=== PATIENT | female | born 1980 | race Caucasian/White ===

== ENCOUNTER → 2020-04-03 07:20 | Outpatient (CLI) | payer OTHER, SELFPAY ==
--- NOTE | 2020-04-03 09:08 | DI.CT.S_ITS ---
PROCEDURE: CT ABDOMEN PELVIS W CON INDICATIONS: Other specified diseases of appendix TECHNIQUE: After the administration of oral and intravenous contrast, 5 mm thick sections acquired from the diaphragms to the symphysis. 5 mm thick coronal and sagittal reformats were performed. For radiation dose reduction, the following was used: automated exposure control, adjustment of mA and/or kV according to patient size. COMPARISON: None. FINDINGS: Image quality: Excellent. ABDOMEN: Lung bases: Lung bases are clear. Heart size is normal. Solid organs: Liver is normal in size and enhancement. Gallbladder has been previously resected. Biliary system is non-dilated. Pancreas enhances normally. Spleen is normal in size and enhancement. No adrenal nodules. Kidneys are normal in size and enhancement, without hydronephrosis. Peritoneum and bowel: Stomach, small bowel, and colon loops are normal in caliber and wall thickness. No free fluid or air. Nodes and vessels: No retroperitoneal or mesenteric adenopathy. Aorta and inferior vena cava are normal in caliber. Miscellaneous: No ventral hernias. PELVIS: Genitourinary: Bladder wall thickness is normal. Probable prior hysterectomy, note is made of a rounded masslike structure at the left adnexa, likely left ovarian in origin, measuring up to 4.1 cm. Miscellaneous: No inguinal hernias or adenopathy. What appears to be a normal appendix is seen at the right lower quadrant. Bones: No suspicious bony lesions. No vertebral body compression fractures. IMPRESSION: 1. A definite source of right lower quadrant pain is not found. What appears to be a normal appendix is found at the right lower quadrant, contiguous with the posterior border of the cecum centered on series 2 image 61. 2. There is a rounded cystic or solid lesion involving the left adnexa, likely ovarian in origin. This is incompletely characterized by CT scanning, measures water in density, but should be followed up by elective pelvic ultrasound. Given that this may represent a simple cyst in a premenopausal patient followup by ultrasound to confirm resolution in 6-8 weeks could be utilized as a single study but depending on the clinical status a pelvic ultrasound at this time may be desired. Dictated by: Jefferson Dejesus M.D. on 04/03/2020 at 11:33 Approved by: Jefferson Dejesus M.D. on 04/03/2020 at 11:42
== END ==
PROVIDERS: PCP Family Medicine; Referring Provider Internal Medicine Gastroenterology; Visit Provider Internal Medicine Gastroenterology
DX: K38.8 Other specified diseases of appendix (principal); R10.31 Right lower quadrant pain
CPT/HCPCS: 74177; Q9967

== ENCOUNTER → 2020-04-15 12:39 | Outpatient (CLI) | payer OTHER, SELFPAY ==
--- NOTE | 2020-04-15 | DI.MRI.S_ITS ---
PROCEDURE: MR KNEE RT W CON INDICATIONS: PAIN IN BILATERAL KNEES TECHNIQUE: After the administration of 50 mL of dilute intra-articular Gadolinium contrast, sagittal T1 spin echo with fat saturation and PD fast spin echo with fat saturation, coronal T1 spin echo with and without fat saturation, coronal T2 fast spin echo with fat saturation, axial PD fast spin echo with fat saturation through the knee. COMPARISON: None. FINDINGS: Image quality: Excellent. Menisci: Subtle oblique undersurface tear involving the posterior horn of the medial meniscus, with partial extrusion of bone body. Lateral meniscus intact. Cruciate ligaments: Anterior cruciate ligament appears intact. Posterior cruciate ligament appears intact. Medial structures: The medial collateral ligament appears intact. Semimembranosus tendon appears intact. Visualized portions of the pes anserinus tendons appear normal. No abnormal bursal fluid. Lateral structures: The lateral collateral ligament intact. Biceps femoris tendon appears intact. Popliteus tendon grossly unremarkable. Iliotibial band appears intact. Anterior structures: Quadriceps tendon intact. Medial and lateral patellofemoral ligaments intact. Patellar tendon appears intact. Hoffa's fat pad unremarkable. Bones and cartilage: No focal marrow contusion or discrete low signal fracture line. Within the medial compartment, diffuse partial-thickness femoral and tibial articular cartilage loss without focal defect Within the lateral compartment, cartilage appears intact Within the patellofemoral compartment, diffuse surface fraying and intrasubstance signal change of the cartilage overlying the lateral patellar facet, as well as the lateral femoral trochlea. Joint space: Torres's cyst measures approximately 5 cm in the cephalocaudad dimension. Probable ganglion cyst involving the origin of the medial gastrocnemius. No specific evidence of intra-articular loose body. IMPRESSION: Oblique undersurface tear involving the posterior horn of the medial meniscus with partial extrusion. Degenerative joint disease as above, most pronounced in the medial and patellofemoral compartments 5 cm Torres cyst Dictated by: Vimal Banuelos M.D. on 04/15/2020 at 16:55 Approved by: Vimal Banuelos M.D. on 04/15/2020 at 17:02
--- NOTE | 2020-04-15 | DI.RAD.S_ITS ---
PROCEDURE: [place] KNEE INJECTION MR/CT RT INDICATIONS: PAIN IN BILATERAL KNEES TECHNIQUE: The indications, alternatives, benefits, risks, and complications of the procedure were explained to the patient. Written informed consent was obtained and placed in the chart. The knee was examined fluoroscopically, and a site chosen for knee joint injection. The skin was prepped and draped in a sterile fashion, and 1% Lidocaine infiltrated from the skin down to the articular surface. A hypodermic needle was then introduced into the joint and iodinated contrast media was instilled to confirm the intra-articular needle tip placement. This was followed by approximately 50 mL dilute solution of a gadolinium containing MR contrast agent. The needle was removed and a bandage was applied. An Andrea wrap was then applied around the knee joint to keep the contrast from collecting in the suprapatellar recess. The patient experienced no complications throughout the procedure and left the fluoroscopic suite in no apparent distress. FINDINGS: Single fluoroscopic spot image demonstrates intra-articular location to injected iodinated contrast. IMPRESSION: Successful fluoroscopically guided administration of dilute Gadolinium solution into the knee joint for MR arthrogram. Dictated by: Vimal Banuelos M.D. on 04/15/2020 at 15:33 Approved by: Vimal Banuelos M.D. on 04/15/2020 at 15:36
--- NOTE | 2020-04-15 | DI.MRI.S_ITS ---
PROCEDURE: MR KNEE LT WO CON INDICATIONS: PAIN IN BILATERAL KNEES TECHNIQUE: The patient declined intra-articular gadolinium contrast. Noncontrast sagittal PD fast spin echo and T2 fast spin echo with fat saturation, sagittal 3-D FLASH with fat saturation; coronal T1 spin echo and PD fast spin echo with fat saturation, and axial PD fast spin echo with fat saturation through the knee. COMPARISON: [facility], MR, MR KNEE RT W CON, 04/15/2020, 13:50. [facility], [place], [place] KNEE INJECTION MR/CT RT, 04/15/2020, 12:09. FINDINGS: Image quality: Excellent. Menisci: Medial meniscus intact with mild myxoid degeneration. Lateral meniscus intact. Cruciate ligaments: Anterior cruciate ligament appears intact. Posterior cruciate ligament appears intact. Medial structures: The medial collateral ligament appears mildly thickened with adjacent soft tissue edema suggestive of low-grade sprain. Minimal age indeterminate semimembranosus insertional tendinopathy. Visualized portions of the pes anserinus tendons appear normal. No abnormal bursal fluid. Lateral structures: The lateral collateral ligament intact. Biceps femoris tendon appears intact. Popliteus tendon grossly unremarkable. Iliotibial band appears intact. Anterior structures: Quadriceps tendon intact. Medial and lateral patellofemoral ligaments intact. Mild distal patellar tendinopathy with adjacent fluid and edema. There is also focal deep infrapatellar bursal fluid, possibly bursitis versus small ganglion cyst Bones and cartilage: No focal marrow contusion or discrete low signal fracture line. Within the medial compartment, surface fraying of the femoral cartilage. No focal cartilage defect. Within the lateral compartment, cartilage appears intact Within the patellofemoral compartment, fissuring of the cartilage overlying the medial femoral trochlea. There is mild surface fraying of the patellar cartilage. Joint space: Large joint effusion No Torres's cyst. No specific evidence of intra-articular loose body. Small ganglion cyst seen at the origin of the medial gastrocnemius. IMPRESSION: Low-grade sprain of the medial collateral ligament. Mild distal patellar tendinopathy. Large joint effusion Mild degenerative joint disease as above. Subcentimeter focus of loculated fluid seen within the deep infrapatellar region possibly early bursitis versus small ganglion cyst. Dictated by: Vimal Banuelos M.D. on 04/15/2020 at 17:15 Approved by: Vimal Banuelos M.D. on 04/15/2020 at 17:25
== END ==
PROVIDERS: PCP Family Medicine; Referring Provider Family Medicine; Visit Provider Family Medicine
DX: M25.561 Pain in right knee (principal); M25.562 Pain in left knee; M17.0 Bilateral primary osteoarthritis of knee; S83.412A Sprain of medial collateral ligament of left knee, initial encounter; S83.241A Other tear of medial meniscus, current injury, right knee, initial encounter; M71.21 Synovial cyst of popliteal space [Baker], right knee; M25.462 Effusion, left knee
CPT/HCPCS: 27369; 73721; 73722; 77002